=== PATIENT | male | born 1960 | race Caucasian/White ===

== ENCOUNTER 2024-04-09 10:20 | Emergency (ER) | payer MEDICARE, SELFPAY ==
[2024-04-09 10:26] VITALS: BP 136/84
[2024-04-09 11:08] LABS: % Basophils 0.5 % (0-2); % Eosinophils 0.3 % (0-6); % Immature Granulocytes 0.3 % (0-0.5); % Lymphocytes 8.4 % (20.5-51.1); % Monocytes 12.7 % (1.7-9.3); % Neutrophils 77.8 % (42.2-75.2); Absolute Basophils 0.1 10^3/uL (0-0.2); Absolute Lymphocytes 0.8 10^3/uL (1.2-3.4); Absolute Monocytes 1.2 10^3/uL (0.1-0.6); Absolute Neutrophils 7.6 10^3/uL (1.4-6.5); Hematocrit 46.6 % (39.0-52.0); Mean Corp Hgb Conc. 32.2 g/dL (33.0-37.0); Mean Corpuscular Hgb 27.5 pg (27.0-31.0); Mean Corpuscular Volume 85.3 fL (80.0-94.0); Mean Platelet Volume 10.1 fL (7.4-10.4); Nucleated Red Blood Cells % 0 % (-); Platelet Count 360 10^3/uL (130-400); Red Blood Cell Count 5.46 10^6/uL (4.70-6.10); White Blood Cell Count 9.7 10^3/uL (4.8-10.8)
--- NOTE | 2024-04-09 11:13 | ED.GENMED ---
History of Present Illness
General
Chief Complaint: Alcohol Problem
Source: patient
Exam Limitations: none
Time Seen by Provider: 04/09/24 10:59
History of Present Illness
History of Present Illness:
63yoM with a history of alcohol abuse, hypertension, and hyperlipidemia presenting for detox evaluation. Patient has a history of heavy alcohol use. He drinks up to a fifth of vodka a day. He has been in a hotel over the past 3 days and has not
been eating or taking his medications. He drank 4 beers yesterday and had 'a little' vodka this morning. Last drink was 8 AM today. Patient has been in contact with the [facility] and he was told that he was accepted but needed to go to the
ED first. Patient currently feels weak. He also had an episode of sweating this morning and had 1 episode of vomiting yesterday. He reports some left-sided chest discomfort but states this is chronic and has been ongoing for at least several
months. No history of withdrawal seizures.
Past History
Past History
ED Past Medical History: Hypercholesterolemia, Seizures and Other (heart mum)
ED Past Surgical History: None
Social History
Tobacco: Smoker
Alcohol: Daily
Drug: Other (non contributory)
Living: other (non contributory)
Family History
Family History: Other (non contributory)
Phy Exam
General Physical Exam
General Presentation: well appearing and no apparent distress
General age: appears stated age
General Skin: warm and dry
General Habitus: normal
General Mental: alert
ENT Exam
ENT Exam: normocephalic
Cardiovascular Exam
Cardiovascular Exam: tachycardia
Pulmonary Exam
Pulmonary Exam: lungs clear, no respiratory distress, no rales, no crackles and no rhonchi
Gastrointestinal Exam
Gastrointestinal Exam: non tender, soft and non distended
Neurological Exam
Neurological Exam: alert
Robin Coma Scale
Eye Opening: Spontaneous
Verbal Response: Oriented
Motor Response: Obeys Commands
GCS Total Score: 15
Skin Exam
Skin Exam: normal color and warm/dry
Psychiatric Exam
Psychiatric Exam: normal mood/affect
Scores
Withdrawal Assessment of Alcohol
Withdrawal Assessment Completed?: Not applicable
Course
Orders/Labs/Results
Orders:
Orders
04/09/24 10:43
Alcohol Urgent
Complete Blood Count/With Diff Urgent
Comprehensive Metabolic Panel Urgent
Lipase Urgent
Magnesium Urgent
04/09/24 11:12
Add On- LAB Urgent
Tests Added?: lipase, magnesium
Electrocardiogram (*1) Urgent
Reason for Study: Chest Pain
EKG- Treatment ONCE
0.9% Sodium Chloride 1000 ml [Nss] 1,000 ml IV BOLUS
Lorazepam [Ativan] 1 mg IV NOW STA
04/09/24 11:29
Troponin I Urgent
04/09/24 12:49
0.9% Sodium Chloride 1000 ml [Nss] 1,000 ml IV BOLUS
Abnormal Lab Results
04/09/24
10:43
MCHC 32.2 L g/dL
(33.0-37.0)
RDW 16.0 H %
(11.5-14.5)
Absolute Neuts (auto) 7.6 H 10^3/uL
(1.4-6.5)
Absolute Lymphs (auto) 0.8 L 10^3/uL
(1.2-3.4)
Absolute Monos (auto) 1.2 H 10^3/uL
(0.1-0.6)
Neutrophils % 77.8 H %
(42.2-75.2)
Lymphocytes % 8.4 L %
(20.5-51.1)
Monocytes % 12.7 H %
(1.7-9.3)
Chloride 97 L mmol/L
(98-107)
Carbon Dioxide 19 L mmol/L
(22-30)
Creatinine 1.4 H mg/dL
(0.7-1.3)
Glucose 121 H mg/dl
(70-99)
Total Bilirubin 1.5 H mg/dl
(0.2-1.3)
AST 90 H U/L
(17-59)
ALT 66 H U/L
(0-50)
Albumin 5.2 H g/dl
(3.5-5.0)
04/09/24 10:43
04/09/24 10:43
Vital Signs
Initial and Last Documented VS:
Initial Vital Signs
Temp Pulse Resp BP Pulse Ox
98.5 F 60 18 136/84 98
04/09/24 10:26 04/09/24 10:26 04/09/24 10:26 04/09/24 10:26 04/09/24 10:26
Last Documented Vital Signs
Temp Pulse Resp BP Pulse Ox
98.5 F 99 22 109/89 96
04/09/24 10:26 04/09/24 14:30 04/09/24 14:30 04/09/24 14:00 04/09/24 11:45
MDM/Problems Addressed
Differential Diagnosis Includes:
63yoM here for detox evaluation. History of heavy alcohol use and would like to stop drinking. Last drink 8 AM this morning. He was accepted at [facility] but needs medical clearance first. VSS. Patient well-appearing in no acute distress.
No clinical signs of withdrawal at this time. Differential diagnosis includes but is not limited to: Alcohol withdrawal, dehydration, electrolyte abnormality
Initial ED plan: Check cardiac labs, magnesium, ETOH, and EKG. IV Ativan and fluid bolus for symptoms.
*EKG
Interpreted by ED Provider?: Yes
EKG Intrepretation Date: 04/09/24
Heart Rate: 118
Rate: tachycardiac
Rhythm: sinus and PAC's
[place]: normal axis
QRS Pattern: right bundle branch block (incomplete)
Ischemia: no ischemia
*Critical Care Note
Total Time (30-74mins, 75-104mins- exclusive of procedures): Not Applicable
Update Note
Update Note:
EKG shows sinus tachycardia with frequent PACs. Electrolytes including magnesium within normal limits. Creatinine 1.4, unclear baseline as no previous labs to compare to. Mild transaminitis noted which is likely secondary to his alcohol use.
Patient medically cleared for detox placement. [facility] team evaluated patient and patient will be picked up from ED and transported directly to the [facility] for further treatment. He was discharged in stable condition.
ED Attending Note
-
Portions of this chart may have been created with voice recognition software.� Occasional wrong word or��sound alike� substitutions may have occurred due to the inherent limitations of voice recognition software.
Discharge Plan
Departure
Patient Disposition: Home (Routine Discharge)
Date of Disposition: 04/09/24
Time of Disposition: 13:26
Patient with high blood pressure during this ER visit?: No
Discharge Problem:
Alcohol withdrawal
Instructions: Alcohol Withdrawal (DC)
Prescriptions:
No Action
atorvastatin 40 MG tablet
40 mg PO QPM Qty: 30 0RF
aspirin 81 MG tablet,chewable
81 mg PO DAILY 0RF
cyanocobalamin (vitamin B-12) 1,000 MCG tablet
1,000 mcg PO DAILY Qty: 1 0RF
Referrals:
UNKNOWN - PT DOES,NOT KNOW [Family Provider] -
Activity Restrictions/Additional Instructions:
You are being discharged directly to the [facility] for further treatment.
Interventions
Interventions:
*Risk Screen - Suicide Last Done: 04/09/24 10:26
*General Assessment Last Done: 04/09/24 10:26
*Neglect/Abuse Screening Last Done: 04/09/24 10:26
ED- Fall Risk Assessment Last Done: 04/09/24 11:34
*ED COVID-19 Vaccine History Last Done: 04/09/24 10:26
*Nursing Disposition Last Done: 04/09/24 14:54
ED- Neurological Assessment Last Done: 04/09/24 11:34
ED-Psychological Assessment Last Done: 04/09/24 11:34
Discharge Date and Time
Discharge Date/Time: 04/09/24 14:55
Print Language: WELSH
[2024-04-09 11:19] LABS: ALT (SGPT) 66 U/L (0-50); AST (SGOT) 90 U/L (17-59); Albumin 5.2 g/dl (3.5-5.0); Alkaline Phosphatase 121 U/L (38-126); Blood Urea Nitrogen 11 mg/dl (9-20); Calcium 9.6 mg/dl (8.4-10.2); Carbon Dioxide 19 mmol/L (22-30); Chloride 97 mmol/L (98-107); Glucose 121 mg/dl (70-99); Potassium 3.9 mmol/L (3.5-5.1); Sodium 135 mmol/L (135-145); Total Bilirubin 1.5 mg/dl (0.2-1.3); eGFR 56.48
[2024-04-09] MEDS: ATIVAN 1 MG IV (11:28)
[2024-04-09 11:30] VITALS: BMI 33.0
[2024-04-09 11:30] LABS: Alcohol 15 mg/dl
[2024-04-09] MEDS: NSS 1000 IV (11:37)
[2024-04-09 12:00] VITALS: BP 99/74
[2024-04-09 12:12] LABS: Troponin I 0.017 ng/ml
[2024-04-09 12:40] LABS: Lipase 109 U/L (23-300); Magnesium 1.8 mg/dl (1.6-2.3)
[2024-04-09 13:00] VITALS: BP 122/92
[2024-04-09 14:00] VITALS: BP 109/89
== END 2024-04-09 14:55 | disposition home or self-care (01) ==
LOC: EMR 10:20
PROVIDERS: Emergency Medicine; Physician Assistant; EMERGENCY PHYSICIAN Student in an Organized Health Care Education/Training Program
DX: F10.939 Alcohol use, unspecified with withdrawal, unspecified (principal); E78.00 Pure hypercholesterolemia, unspecified; F17.200 Nicotine dependence, unspecified, uncomplicated
CPT/HCPCS: 99283; 80053; 82077; 83690; 83735; 84484; 85025; 93005